=== PATIENT | female | born 1960 | race Caucasian/White ===

== ENCOUNTER 2018-09-06 09:25 | Outpatient (CLI) | payer OTHER ==
--- NOTE | 2018-09-06 10:11 | RAD ---
FRONTAL AND LATERAL IMAGING OF THE THORCIC SPINE: Date: 09-06-18 Comparison: None. History: Midback pain. FINDINGS: Thoracic pedicles appear intact on frontal imaging. There is midthoracic spine disc space narrowing a nd anterior osteophyte formation. No anterolisthesis or retrolisthesis. No acute fracture. IMPRESSION: No acute findings. POS: SARAH
== END 2018-09-06 09:26 | disposition home or self-care (01) ==
LOC: BICRAD 09:25
PROVIDERS: ATTEND Physician Assistant
DX: M54.9 Dorsalgia, unspecified (principal)
CPT/HCPCS: 36415; 72070; 80053; 82306; 84439; 84443; 84481; 85025; 85652; 86140

== ENCOUNTER 2018-09-13 08:59 | Outpatient (CLI) | payer OTHER | END 2018-09-13 09:00 | disposition home or self-care (01) | LOC: BICMAMMO 08:59 | PROVIDERS: ATTEND Family Medicine | DX: Z12.31 Encounter for screening mammogram for malignant neoplasm of breast (principal); Z80.3 Family history of malignant neoplasm of breast | CPT/HCPCS: 77063; 77067 ==

== ENCOUNTER 2019-08-28 10:15 | Outpatient (CLI) | payer BC ==
--- NOTE | 2019-08-28 10:48 | ULT ---
US Gallbladder RUQ: 08/28/2019 12:00 AM CLINICAL HISTORY: Abdominal fullness. STUDY: Limited right upper quadrant ultrasound of abdomen. COMPARISON: None. FINDINGS: Liver: Size: Normal. Echogenicity: Hyperechoic consistent with hepatic steatosis. Contour: Smooth. Mass: None. Bile ducts: No intrahepatic or extrahepatic biliary dilatation. Common bile duct measures 5 mm. Gallbladder: Normal. Pancreas: Head, body, and tail appear normal. Right kidney: No pelvicalyceal dilatation. Right kidney measuring 10.4 cm in length. IMPRESSION: Fatty liver
== END 2019-08-28 10:16 | disposition home or self-care (01) ==
LOC: SCSULT 10:15
PROVIDERS: ATTEND Family Medicine
DX: R19.8 Other specified symptoms and signs involving the digestive system and abdomen (principal); K76.0 Fatty (change of) liver, not elsewhere classified
CPT/HCPCS: 76705

== ENCOUNTER 2019-10-11 11:23 | Outpatient (CLI) | payer OTHER ==
--- NOTE | 2019-10-11 13:08 | MMO ---
Bilateral MAMMO Bilat Screen [facility]. CLINICAL HISTORY: Patient is 59 years old and is seen for screening. The patient has no family history of breast cancer. The patient has no personal history of cancer. VIEWS: The views performed were: bilateral craniocaudal with tomosynthesis and bilateral mediolateral oblique with tomosynthesis. FILMS COMPARED: The present examination has been compared to prior imaging studies performed at [facility] on 05/05/2015, 05/10/2016, 07/24/2017 and 09/13/2018. This study has been interpreted with the assistance of computer-aided detection. MAMMOGRAM FINDINGS: There are scattered fibroglandular densities. There are no suspicious masses, suspicious calcifications, or new areas of architectural distortion. IMPRESSION: THERE IS NO MAMMOGRAPHIC EVIDENCE OF MALIGNANCY. A ROUTINE FOLLOW-UP MAMMOGRAM IN 1 YEAR IS RECOMMENDED. THE RESULTS OF THIS EXAM WERE SENT TO THE PATIENT. ACR BI-RADS Category 1 - Negative MAMMOGRAPHY NOTE: 1. A negative mammogram report should not delay a biopsy if a dominant of clinically suspicious mass is present. 2. Approximately 10% to 15% of breast cancers are not detected by mammography. 3. Adenosis and dense breasts may obscure an underlying neoplasm. Reported by: FERDINAND MA MD Electonically Signed: [id number]
== END 2019-10-11 11:24 | disposition home or self-care (01) ==
LOC: BICMAMMO 11:23
PROVIDERS: ATTEND Family Medicine
DX: Z12.31 Encounter for screening mammogram for malignant neoplasm of breast (principal)
CPT/HCPCS: 77063; 77067

== ENCOUNTER 2020-02-28 11:12 | Outpatient (CLI) | payer OTHER ==
--- NOTE | 2020-02-28 15:02 | ULT ---
RENAL ULTRASOUND: 02/28/20 COMPARISON: None. HISTORY: Dysuria. TECHNIQUE: Multiplanar rodgers scale sonographic imaging of the kidneys and urinary bladder obtained. FINDINGS: Right kidney measures 10.8 x 4.6 x 4.3 cm. No right renal mass, hydronephrosis or stone noted. Left kidney measures 11.2 x 5.7 x 4.7 cm and demonstrates no renal mass, hydronephrosis or stone. Alfredo ateral ureteral jets are noted. Prevoid urinary bladder volume is 133 mL. Postvoid urinary bladder vo lume is 29 mL. IMPRESSION: No hydronephrosis. POS: ESTELLA
== END 2020-02-28 11:13 | disposition home or self-care (01) ==
LOC: SCSULT 11:12
PROVIDERS: ATTEND Urology
DX: R30.0 Dysuria (principal); Z87.442 Personal history of urinary calculi
CPT/HCPCS: 76770

== ENCOUNTER 2021-11-02 09:45 | Outpatient (CLI) | payer OTHER | END 2021-11-02 09:46 | disposition home or self-care (01) | LOC: BICRAD 09:45 | PROVIDERS: ATTEND Internal Medicine Rheumatology | DX: M25.561 Pain in right knee (principal); M25.562 Pain in left knee ==

== ENCOUNTER 2022-08-19 14:44 | Outpatient (CLI) | payer OTHER | END 2022-08-19 14:45 | disposition home or self-care (01) | LOC: BICMAMMO 14:44 | PROVIDERS: ATTEND Family Medicine | DX: Z13.820 Encounter for screening for osteoporosis (principal); E55.9 Vitamin D deficiency, unspecified; M85.851 Other specified disorders of bone density and structure, right thigh; M85.852 Other specified disorders of bone density and structure, left thigh | CPT/HCPCS: 77080 ==

== ENCOUNTER 2022-08-29 17:35 | Emergency (ER) | payer OTHER | END 2022-08-29 20:44 | disposition home or self-care (01) | LOC: ERS 17:35 | DX: M25.562 Pain in left knee (principal); E03.9 Hypothyroidism, unspecified; K21.9 Gastro-esophageal reflux disease without esophagitis; Z87.891 Personal history of nicotine dependence ==

== ENCOUNTER 2023-01-26 09:47 | Outpatient (CLI) | payer OTHER | END 2023-01-26 09:48 | disposition home or self-care (01) | LOC: BICMAMMO 09:47 | PROVIDERS: ATTEND Family Medicine | DX: Z12.31 Encounter for screening mammogram for malignant neoplasm of breast (principal) | CPT/HCPCS: 77063; 77067 ==

== ENCOUNTER 2023-12-08 08:28 | Outpatient (CLI) | payer MEDICARE, BC | END 2023-12-08 08:29 | disposition home or self-care (01) | LOC: ULT 08:28 | PROVIDERS: ATTEND Urology | DX: R10.9 Unspecified abdominal pain (principal) | CPT/HCPCS: 76770 ==

== ENCOUNTER 2024-04-23 10:09 | Outpatient (CLI) | payer MEDICARE, BC ==
[2024-04-23 11:12] LABS: Hematocrit 40.7 % (34.9-44.5); Hemoglobin 14.2 g/dL (12.0-15.5); Mean Corpuscular HGB CONC 34.9 g/dL (32.0-36.0); Mean Corpuscular Hemoglobin 31.5 pg (27.0-33.0); Mean Corpuscular Volume 90.2 fL (81.6-98.3); Mean Platelet Volume 9.4 fL (7.4-10.4); Platelet Count 228 10x3/uL (150-450); RBC Distribution Width 12.9 % (11.5-14.5); Red Blood Cell (RBC) Count 4.51 10x6/uL (3.90-5.03); White Blood Cell (WBC) Count 8.2 10x3/uL (3.5-10.5)
[2024-04-23 11:50] LABS: INR-International Normal Ratio 0.9; PTT 26.1 sec (22.0-33.0); Prothrombin Time 10.1 sec (9.5-12.1)
[2024-04-23 12:26] LABS: Anion Gap 12 mmol/L (10-20); BUN (Urea Nitrogen) 19 mg/dL (9.8-20.1); Calc. Creatinine Clearance 0 mL/min (70-130); Calcium 9.7 mg/dL (7.8-10.44); Carbon Dioxide 22 mmol/L (23-31); Chloride 107 mmol/L (98-107); Estimated GFR 88; Glucose 98 mg/dL (80-115); Potassium 4.4 mmol/L (3.5-5.1); Sodium 137 mmol/L (136-145)
== END 2024-04-23 10:10 | disposition home or self-care (01) ==
LOC: LABBT 10:09
PROVIDERS: ATTEND Surgery
DX: Z01.818 Encounter for other preprocedural examination (principal)
CPT/HCPCS: 80048; 85027; 85610; 85730; 93005; 93010

== ENCOUNTER 2024-04-25 05:44 | Observation (INO) | payer MEDICARE, BC ==
[2024-04-23 10:56] VITALS: BMI 27.0
[2024-04-25] MEDS ORDERED: Midazolam HCl 2 mg/2 ml Vial ONE (06:43)
[2024-04-25] MEDS ORDERED: fentaNYL PF 100 MCG/2 ML SYRINGE ONE (06:43)
[2024-04-25] MEDS ORDERED: PROPOFOL 20 ML ONE (06:43)
[2024-04-25] MEDS ORDERED: Rocuronium Bromide 10 MG/ML (10ML VIAL) ONE (06:44)
[2024-04-25] MEDS ORDERED: Dexamethasone 20 MG/5 ML VIAL ONE (06:44)
[2024-04-25] MEDS ORDERED: Ondansetron PF 4 MG/2 ML Vial ONE (06:44)
[2024-04-25] MEDS ORDERED: Lidocaine 1% PF 5 ML VIAL ONE (06:44)
[2024-04-25] MEDS ORDERED: Vancomycin 1 GM VIAL ONE (06:56)
[2024-04-25] MEDS ORDERED: Thrombin 5000 UNITS/5 ML VIAL ONE ×2 (06:56→10:58)
[2024-04-25] MEDS ORDERED: Ondansetron HCl/PF 4 MG/2 ML Vial IVP PRN (07:07)
[2024-04-25] MEDS ORDERED: Promethazine HCl 25 MG/ML VIAL IM PRN (07:07)
[2024-04-25] MEDS ORDERED: HYDROmorphone 2 MG/ML VIAL SLOW IVP PRN (07:07)
[2024-04-25] MEDS ORDERED: Meperidine HCl/PF 25 MG/ML VIAL SLOW IVP PRN (07:07)
[2024-04-25] MEDS ORDERED: CEFAZOLIN 2 GM VIAL ONE (07:10)
[2024-04-25] MEDS ORDERED: Sodium Chloride 0.9% 100 ML ONE (07:10)
[2024-04-25] MEDS ORDERED: ePHEDrine Sulfate 50 MG/10 ML VIAL ONE (07:51)
[2024-04-25] MEDS ORDERED: HYDROmorphone 2 MG/ML VIAL ONE (08:06)
[2024-04-25] MEDS ORDERED: SUGAMMADEX SODIUM 200 MG/2 ML VIAL ONE (10:33)
[2024-04-25] MEDS ORDERED: diphenhydrAMINE 25 MG CAP PO PRN (10:59)
[2024-04-25] MEDS ORDERED: Acetaminophen 325 MG TAB PO PRN (10:59)
[2024-04-25] MEDS ORDERED: Milk Of Magnesia 30 ML UDCUP PO PRN (10:59)
[2024-04-25] MEDS ORDERED: Ondansetron PF 4 MG/2 ML Vial IVP PRN (10:59)
[2024-04-25] MEDS ORDERED: hydrALAZINE 20 MG/ML VIAL SLOW IVP PRN (11:01)
[2024-04-25] MEDS ORDERED: fentaNYL 50 mcg/mL 1 mL Vial ONE ×2 (11:15→12:19)
[2024-04-25] MEDS ORDERED: Ketorolac Tromethamine 0.5% Ophth Soln 3 ml Bottle L EYE PRN (12:18)
[2024-04-25] MEDS: Morphine 2 MG/ML VIAL SLOW IVP PRN (14:21)
[2024-04-25] MEDS: Sodium Chloride 0.9% 1,000 ML IV SCH (14:21)
[2024-04-25] MEDS: Cyclobenzaprine 10 MG TAB PO PRN (14:21)
[2024-04-25] MEDS: CEFAZOLIN 2 GM in Sodium Chloride 0.9% 100 ML IVPB SCH (15:50)
[2024-04-25] MEDS: Acetaminophen/Codeine 30-300mg Tablet PO PRN (15:53)
[2024-04-25] MEDS: HYDROcodone/Acetaminophen 7.5/325 mg Tablet PO PRN (18:05)
[2024-04-25] MEDS: traMADol HCl 50 MG TAB PO PRN (22:17)
[2024-04-26] MEDS ORDERED: Polyethylene Glycol 3350 17 GM Packet PO PRN (07:01)
[2024-04-26 12:00] VITALS: BP 117/72; TEMP 99
== END 2024-04-26 12:40 | disposition home or self-care (01) ==
LOC: SDC 05:44 → SURG A 10:59
PROVIDERS: ADMIT Surgery; ATTEND Surgery
PROC: 01NB0ZZ Release Lumbar Nerve, Open Approach (ICD-10-PCS; principal; 2024-04-25)
DX: M48.062 Spinal stenosis, lumbar region with neurogenic claudication (principal); M51.26 Other intervertebral disc displacement, lumbar region; M54.16 Radiculopathy, lumbar region; Z88.6 Allergy status to analgesic agent
CPT/HCPCS: 63047; 63048; 63056; 69990; J1100; J1170; J2250; J2272; J2405; J2704; J3010; J3370